=== PATIENT | male | born 1950 | race Caucasian/White ===

== ENCOUNTER 2022-05-29 12:27 | Inpatient (IN) | payer MEDICARE ==
[~2022-05-29] VITALS: Ht 167.6 cm; Wt 78.5 kg
[~2022-05-29 12:27] MED LIST: ALBU2.5V13 IH
[2022-05-29] MEDS ORDERED: DILTIAZEM HCL 5MG/ML 5ML VIAL IV PRN (14:15)
[2022-05-29] MEDS ORDERED: AMIODARONE HCL 150 MG in DEXT 5% WATER 100 ML IV NR (14:30)
[2022-05-29] MEDS ORDERED: AMIODARONE HCL 900 MG in DEXT 5% WATER 482 ML IV SCH ×2 (14:30→14:45)
[2022-05-29 16:34] LABS: EOSINOPHILS % 3.3 % (0.0-5.0); HEMOGLOBIN. 15.9 g/dL (14.0-18.0); LYMPHOCYTES % 22.3 % (20.0-50.0); MEAN CORPUSCULAR HEMOGLOBIN 29.7 pg (28.0-32.0); MEAN CORPUSCULAR VOLUME 87.6 fL (80.0-94.0); MEAN PLATELET VOLUME 7.3 fl (7.4-10.4); MONOCYTES % 9.8 % (2.0-8.0); NEUTROPHILS % 63.6 % (40.0-76.0); PLATELET 287 x1000/uL (130-400); RED BLOOD CELL COUNT 5.36 mill/uL (4.7-6.1); RED CELL DISTRIBUTION WIDTH 14.4 % (11.6-14.6)
[2022-05-29 16:36] LABS: CHLORIDE 106 mEq/L (98-107)
[2022-05-29] MEDS ORDERED: OMEPRAZOLE 20MG CAPSULE EXTENDED RELEASE PO ONE (21:15)
[2022-05-30 03:26] VITALS: BP 145/85
[2022-05-30 06:30] LABS: BASOPHILS % 0.8 % (0.0-2.0); EOSINOPHILS % 5.2 % (0.0-5.0); HEMATOCRIT. 45.4 % (42.0-52.0); HEMOGLOBIN. 15.1 g/dL (14.0-18.0); LYMPHOCYTES % 18.9 % (20.0-50.0); MEAN CORPUSCULAR HEMOGLOBIN 29.3 pg (28.0-32.0); MEAN PLATELET VOLUME 7.7 fl (7.4-10.4); MONOCYTES % 9.7 % (2.0-8.0); NEUTROPHILS % 65.4 % (40.0-76.0); PLATELET 254 x1000/uL (130-400); RED BLOOD CELL COUNT 5.16 mill/uL (4.7-6.1); RED CELL DISTRIBUTION WIDTH 14.3 % (11.6-14.6)
[2022-05-30 06:48] LABS: CHLORIDE 106 mEq/L (98-107)
[2022-05-30 07:02] LABS: CREATINE KINASE 59 IU/L (39-308); CREATINE KINASE MB FRACTION < 1.0 ng/mL (0.5-3.6)
[2022-05-30 07:07] LABS: HDL CHOLESTEROL 33 mg/dL (40-59); LDL CHOLESTEROL 111 mg/dL (5-100); T4 FREE 1.01 ng/dL (0.76-1.46)
[2022-05-30] MEDS ORDERED: ENOXAPARIN 40MG/0.4ML SYR SUBCUT SCH (09:00)
[2022-05-30 12:00] VITALS: BP 115/77
[2022-05-30] MEDS ORDERED: REGADENOSON 0.4 MG/5 ML IV NR (12:30)
[2022-05-30 18:46] LABS: CREATINE KINASE 61 IU/L (39-308); CREATINE KINASE MB FRACTION < 1.0 ng/mL (0.5-3.6)
[2022-05-30 20:00] VITALS: BP 107/69
[2022-05-30] MEDS: AMIODARONE HCL 200 MG TABLET PO SCH (20:56)
[2022-05-30] MEDS: PANTOPRAZOLE 40MG DR TABLET PO SCH (21:00)
[2022-05-30] MEDS ORDERED: ATORVASTATIN CALCIUM 20MG TABLET PO SCH (21:00)
[2022-05-31] VITALS: BP 114/70
[2022-05-31 00:02] LABS: CREATINE KINASE MB FRACTION 1.1 ng/mL (0.5-3.6)
[2022-05-31 04:00] VITALS: BP 113/75
[2022-05-31 06:24] LABS: BASOPHILS % 0.7 % (0.0-2.0); EOSINOPHILS % 3.9 % (0.0-5.0); HEMATOCRIT. 44.3 % (42.0-52.0); HEMOGLOBIN. 15.2 g/dL (14.0-18.0); LYMPHOCYTES % 16.1 % (20.0-50.0); MEAN CORPUSCULAR HEMOGLOBIN 29.9 pg (28.0-32.0); MEAN CORPUSCULAR VOLUME 87.3 fL (80.0-94.0); MEAN PLATELET VOLUME 7.7 fl (7.4-10.4); MONOCYTES % 10.3 % (2.0-8.0); PLATELET 248 x1000/uL (130-400); RED BLOOD CELL COUNT 5.08 mill/uL (4.7-6.1); RED CELL DISTRIBUTION WIDTH 14.6 % (11.6-14.6)
[2022-05-31 06:35] LABS: CHLORIDE 105 mEq/L (98-107)
[2022-05-31] MEDS: PANTOPRAZOLE 40MG DR TABLET PO SCH (07:40)
[2022-05-31 08:00] VITALS: BP 126/75
[2022-05-31] MEDS ORDERED: REGADENOSON 0.4 MG/5 ML IV ONE (10:35)
[2022-05-31 12:09] VITALS: BP 116/98
[2022-05-31] MEDS: AMIODARONE HCL 200 MG TABLET PO SCH (12:20)
[2022-05-31] MEDS ORDERED: AMI2 PO (14:15)
[2022-05-31] MEDS ORDERED: PANT40TA51 PO (14:15)
[2022-05-31] MEDS ORDERED: ATOR20TA PO (14:15)
[2022-05-31 16:00] VITALS: BP 116/84
[2022-05-31 18:43] VITALS: BP 116/84
== END 2022-05-31 19:43 | disposition home or self-care (01) | DRG 310 ==
LOC: ER 12:27 → 7WST 19:51
PROVIDERS: ADMIT Internal Medicine; ATTEND Internal Medicine
PROC: 4A02XM4 Measurement of Cardiac Total Activity, External Approach (ICD-10-PCS; principal; 2022-05-31)
PROC: 3E033HZ Introduction of Radioactive Substance into Peripheral Vein, Percutaneous Approach (ICD-10-PCS; 2022-05-31)
DX: I48.0 Paroxysmal atrial fibrillation (principal); N18.1 Chronic kidney disease, stage 1; J45.909 Unspecified asthma, uncomplicated; Z20.822 Contact with and (suspected) exposure to COVID-19; R00.2 Palpitations; Z91.012 Allergy to eggs; Z79.899 Other long term (current) drug therapy; Z87.891 Personal history of nicotine dependence
CPT/HCPCS: 36415; 71045; 78452; 80048; 80053; 80061; 82550; 82553; 83735; 83880; 84439; 84443; 84484; 85025; 87426; 93005; 93017; 93306; 99291; A9500; J0282; J1650; J2785; J3490; J7060

== ENCOUNTER 2023-08-25 13:20 | Emergency (ER) | payer MEDICARE ==
[~2023-08-25] VITALS: Ht 167.6 cm; Wt 72.0 kg
[~2023-08-25 13:20] MED LIST changes: +AMI2 PO; +ATOR20TA PO; +PANT40TA51 PO
[2023-08-25 13:45] VITALS: O2SAT 96
[2023-08-25] MEDS ORDERED: IBUPROFEN 600MG TABLET PO ONE (16:30)
[2023-08-25] MEDS ORDERED: IBUP-2029 MT ×2 (16:34→16:36)
[2023-08-25] MEDS ORDERED: DIPHENHYDRAMINE 25MG CAPSULE PO ONE (16:45)
[2023-08-25 17:40] VITALS: BP 121/74; PULSE 68; RESP 20; TEMP 98.7
== END 2023-08-25 17:41 | disposition home or self-care (01) ==
LOC: ER 13:20
DX: L72.9 Follicular cyst of the skin and subcutaneous tissue, unspecified (principal); J45.909 Unspecified asthma, uncomplicated; E78.00 Pure hypercholesterolemia, unspecified; I10 Essential (primary) hypertension; Z98.890 Other specified postprocedural states; Z91.018 Allergy to other foods
CPT/HCPCS: 99283; Q0163

== ENCOUNTER 2023-12-07 07:34 | Emergency (ER) | payer MEDICARE ==
[~2023-12-07] VITALS: Ht 170.2 cm; Wt 65.0 kg
[~2023-12-07 07:34] MED LIST changes: +IBUP-2029 MT
[2023-12-07 07:40] VITALS: TEMP 98.5; O2SAT 97
[2023-12-07 08:30] VITALS: BP 127/82; PULSE 87; RESP 20
[2023-12-07] MEDS ORDERED: IBUPROFEN 600MG TABLET PO ONE (08:30)
[2023-12-07] MEDS ORDERED: MELO-105 MT (10:08)
== END 2023-12-07 12:55 | disposition home or self-care (01) ==
LOC: ER 07:34
DX: M54.12 Radiculopathy, cervical region (principal); I10 Essential (primary) hypertension; E78.00 Pure hypercholesterolemia, unspecified; J45.909 Unspecified asthma, uncomplicated; Z91.012 Allergy to eggs; Z98.890 Other specified postprocedural states
CPT/HCPCS: 72040; 99283

== ENCOUNTER 2024-08-02 08:51 | Emergency (ER) | payer MEDICARE ==
[~2024-08-02] VITALS: Ht 160 cm; Wt 64.0 kg
[~2024-08-02 08:51] MED LIST changes: +MELO-105 MT
[2024-08-02 08:54] VITALS: O2SAT 100
[2024-08-02 09:17] LABS: HEMATOCRIT. 44.3 % (42.0-52.0); HEMOGLOBIN. 14.8 g/dL (14.0-18.0); MEAN CORPUSCULAR HEMOGLOBIN 30.7 pg (28.0-32.0); MEAN CORPUSCULAR HGB CONC 33.5 g/dL (31.0-37.0); MEAN CORPUSCULAR VOLUME 91.7 fL (80.0-94.0); MEAN PLATELET VOLUME 7.4 fl (7.4-10.4); PLATELET 203 x1000/uL (130-400); RED BLOOD CELL COUNT 4.83 mill/uL (4.7-6.1); RED CELL DISTRIBUTION WIDTH 14.4 % (11.6-14.6); WHITE BLOOD COUNT 7.4 x1000/uL (4.5-11.0)
[2024-08-02] MEDS: KETOROLAC 30MG/ML VIAL IM ONE (09:20)
[2024-08-02 09:28] LABS: DIFFERENTIAL COMMENT 1
[2024-08-02 09:30] LABS: CHLORIDE 109 mEq/L (98-107); POTASSIUM 3.8 mEq/L (3.5-5.1); SODIUM 141 mEq/L (136-145)
[2024-08-02 09:31] LABS: CALCIUM 9.2 mg/dL (8.7-10.4); CARBON DIOXIDE 25 mEq/L (21-32)
[2024-08-02 09:36] LABS: CREATININE 0.9 mg/dL (0.6-1.3); GLUCOSE 107 mg/dL (70-105); UREA NITROGEN BLOOD 11 mg/dL (9-23)
[2024-08-02 09:38] LABS: ALANINE AMINOTRANSFERASE < 7 IU/L (10-49); ALBUMIN 4.2 g/dL (3.2-4.8); ASPARTATE AMINOTRANSFERASE 13 IU/L (<34); BILIRUBIN TOTAL 0.8 mg/dL (0.1-1.0)
[2024-08-02 09:39] LABS: PROTEIN TOTAL 7.1 g/dL (6.0-8.3)
[2024-08-02 13:26] VITALS: BP 130/78; PULSE 74; RESP 18; TEMP 36.61404; O2SAT 100
[2024-08-02 15:06] LABS: PLATELET ESTIMATE NORMAL
[2024-08-03] MEDS ORDERED: IOHEXOL-300 100 ML BOTTLE ONE (16:05)
== END 2024-08-02 13:26 | disposition home or self-care (01) ==
LOC: ER 08:51
DX: K08.89 Other specified disorders of teeth and supporting structures (principal); J45.909 Unspecified asthma, uncomplicated; E78.00 Pure hypercholesterolemia, unspecified; I10 Essential (primary) hypertension; Z98.890 Other specified postprocedural states; Z79.899 Other long term (current) drug therapy; Z91.012 Allergy to eggs
CPT/HCPCS: 99285; 70487; 80053; 85025; 36415; 96372; J1885

== ENCOUNTER 2024-12-31 09:11 | Emergency (ER) | payer MEDICARE, MEDICAID ==
[~2024-12-31] VITALS: Ht 165.1 cm; Wt 73.0 kg
[2024-12-31 09:23] VITALS: O2SAT 96
[2024-12-31 10:20] LABS: BASOPHILS % 0.7 % (0.0-2.0); EOSINOPHILS % 9.7 % (0.0-5.0); HEMATOCRIT. 46.3 % (42.0-52.0); HEMOGLOBIN. 15.5 g/dL (14.0-18.0); MEAN CORPUSCULAR HEMOGLOBIN 30.8 pg (28.0-32.0); MEAN CORPUSCULAR HGB CONC 33.4 g/dL (31.0-37.0); MEAN CORPUSCULAR VOLUME 92.1 fL (80.0-94.0); MEAN PLATELET VOLUME 7.7 fl (7.4-10.4); MONOCYTES % 8.9 % (2.0-8.0); NEUTROPHILS % 62.7 % (40.0-76.0); PLATELET 212 x1000/uL (130-400); RED BLOOD CELL COUNT 5.03 mill/uL (4.7-6.1); RED CELL DISTRIBUTION WIDTH 13.8 % (11.6-14.6); WHITE BLOOD COUNT 6.6 x1000/uL (4.5-11.0)
[2024-12-31 10:32] LABS: CHLORIDE 104 mEq/L (98-107); POTASSIUM 4.2 mEq/L (3.5-5.1); SODIUM 137 mEq/L (136-145)
[2024-12-31 10:33] LABS: CARBON DIOXIDE 24 mEq/L (21-32)
[2024-12-31 10:34] LABS: CALCIUM 9.3 mg/dL (8.7-10.4)
[2024-12-31 10:38] LABS: GLUCOSE 96 mg/dL (70-105)
[2024-12-31 10:39] LABS: UREA NITROGEN BLOOD 12 mg/dL (9-23)
[2024-12-31 10:40] LABS: ALANINE AMINOTRANSFERASE < 7 IU/L (10-49); ALBUMIN 4.2 g/dL (3.2-4.8); ASPARTATE AMINOTRANSFERASE 14 IU/L (<34)
[2024-12-31 10:41] LABS: BILIRUBIN TOTAL 1.5 mg/dL (0.1-1.0); PROTEIN TOTAL 7.2 g/dL (6.0-8.3)
[2024-12-31] MEDS ORDERED: ACET-2708 MT (12:06)
[2024-12-31 12:43] VITALS: BP 133/85; PULSE 68; RESP 16; TEMP 36.9; O2SAT 96
[2024-12-31 13:24] LABS: CLARITY URINE CLEAR (CLEAR); COLOR URINE YELLOW (YELLOW); GLUCOSE URINE NEGATIVE (NEGATIVE); KETONES URINE NEGATIVE (NEGATIVE); LEUKOCYTE ESTERASE URINE NEGATIVE (NEGATIVE); NITRITE URINE NEGATIVE (NEGATIVE); OCCULT BLOOD URINE NEGATIVE (NEGATIVE); PH URINE 7.5 (4.5-8.0); PROTEIN URINE NEGATIVE (NEGATIVE); SPECIFIC GRAVITY URINE 1.015 (1.005-1.030)
[2024-12-31 14:26] LABS: ERYTHROCYTE SEDIMENTATION RATE 3 mm/hr (0-20)
== END 2024-12-31 12:48 | disposition home or self-care (01) ==
LOC: ER 09:11
DX: M54.40 Lumbago with sciatica, unspecified side (principal); J44.89 Other specified chronic obstructive pulmonary disease; E78.00 Pure hypercholesterolemia, unspecified; I10 Essential (primary) hypertension; Z79.1 Long term (current) use of non-steroidal anti-inflammatories (NSAID); Z98.890 Other specified postprocedural states; Z79.899 Other long term (current) drug therapy; Z91.012 Allergy to eggs
CPT/HCPCS: 36415; 80053; 81003; 85025; 85651; 99283

== ENCOUNTER 2025-01-15 13:51 | Inpatient (IN) | payer MEDICARE, MEDICAID ==
[~2025-01-15] VITALS: Ht 165.1 cm; Wt 69.9 kg
[~2025-01-15 13:51] MED LIST changes: +ACET-2708 MT
[2025-01-15] MEDS ORDERED: DILTIAZEM HCL 120MG CAPSULE ER 24HR PO ONE (14:15)
[2025-01-15] MEDS: SODIUM CHLORIDE 0.9% 1,000 ML IV ONE (14:20)
[2025-01-15 14:34] LABS: CARBON DIOXIDE 20 mEq/L (21-32); CHLORIDE 108 mEq/L (98-107); POTASSIUM 5.1 mEq/L (3.5-5.1); SODIUM 143 mEq/L (136-145)
[2025-01-15] MEDS: DILTIAZEM HCL 60MG TABLET PO NR (14:34)
[2025-01-15 14:36] LABS: CALCIUM 9.6 mg/dL (8.7-10.4)
[2025-01-15 14:40] LABS: CREATININE 1.3 mg/dL (0.6-1.3); GLUCOSE 141 mg/dL (70-105); UREA NITROGEN BLOOD 13 mg/dL (9-23)
[2025-01-15 14:42] LABS: TROPONIN I HIGH SENSITIVITY 4 ng/L (3.0-53)
[2025-01-15] MEDS: MAGNESIUM 1 G PREMIX 100 ML IV ONE (15:15)
[2025-01-15 15:45] LABS: BASOPHILS % 0.6 % (0.0-2.0); EOSINOPHILS % 8.1 % (0.0-5.0); HEMATOCRIT. 43.6 % (42.0-52.0); HEMOGLOBIN. 14.3 g/dL (14.0-18.0); LYMPHOCYTES % 19.6 % (20.0-50.0); MEAN CORPUSCULAR HEMOGLOBIN 29.6 pg (28.0-32.0); MEAN CORPUSCULAR HGB CONC 32.8 g/dL (31.0-37.0); MEAN CORPUSCULAR VOLUME 90.3 fL (80.0-94.0); MEAN PLATELET VOLUME 7.7 fl (7.4-10.4); MONOCYTES % 9.4 % (2.0-8.0); NEUTROPHILS % 62.3 % (40.0-76.0); PLATELET 178 x1000/uL (130-400); RED BLOOD CELL COUNT 4.83 mill/uL (4.7-6.1); RED CELL DISTRIBUTION WIDTH 14.1 % (11.6-14.6); WHITE BLOOD COUNT 7.3 x1000/uL (4.5-11.0)
[2025-01-15 15:54] LABS: INR 1.1; PROTHROMBIN TIME 11.5 sec (9.6-11.0)
[2025-01-15] MEDS ORDERED: HYDROCODONE/ACETAMINOPHEN 5/325MG TABLET PO PRN (16:45)
[2025-01-15] MEDS ORDERED: ONDANSETRON HCL 4MG/2ML INJ IV PRN (16:45)
[2025-01-15] MEDS ORDERED: ACETAMINOPHEN 325MG TABLET PO PRN (16:45)
[2025-01-15] MEDS ORDERED: IPRATROPIUM/ALBUTEROL 0.5-3(2.5)MG/3ML NEB HHN PRN (16:45)
[2025-01-15] MEDS: ENOXAPARIN 80MG/0.8ML SYR SUBCUT SCH (18:18)
[2025-01-15 20:00] VITALS: BP 120/74; PULSE 80; RESP 16; TEMP 36.7; O2SAT 96
[2025-01-15] MEDS: ATORVASTATIN CALCIUM 40MG TABLET PO SCH (21:41)
[2025-01-15] MEDS: DILTIAZEM HCL 60MG TABLET PO SCH (21:43)
[2025-01-15 22:00] VITALS: BP 120/74; PULSE 80; RESP 16; TEMP 36.8
[2025-01-15 22:37] LABS: CREATINE KINASE MB FRACTION 1.1 ng/mL (0.5-3.6)
[2025-01-15 22:38] LABS: CREATINE KINASE 114 IU/L (46-171)
[2025-01-15 22:41] LABS: TROPONIN I HIGH SENSITIVITY < 4 ng/L (3.0-53)
[2025-01-16] VITALS: BP 109/60; PULSE 60; RESP 16; TEMP 36.1; O2SAT 96
[2025-01-16 04:00] VITALS: BP 97/64; PULSE 67; RESP 18; TEMP 36.1; O2SAT 98
[2025-01-16 07:06] LABS: BASOPHILS % 0.7 % (0.0-2.0); EOSINOPHILS % 11.7 % (0.0-5.0); HEMATOCRIT. 43.2 % (42.0-52.0); HEMOGLOBIN. 14.7 g/dL (14.0-18.0); LYMPHOCYTES % 24.3 % (20.0-50.0); MEAN CORPUSCULAR HEMOGLOBIN 31.1 pg (28.0-32.0); MEAN CORPUSCULAR VOLUME 91.6 fL (80.0-94.0); MEAN PLATELET VOLUME 8.4 fl (7.4-10.4); MONOCYTES % 11.5 % (2.0-8.0); NEUTROPHILS % 51.8 % (40.0-76.0); PLATELET 175 x1000/uL (130-400); RED BLOOD CELL COUNT 4.72 mill/uL (4.7-6.1); WHITE BLOOD COUNT 6.9 x1000/uL (4.5-11.0)
[2025-01-16 07:11] LABS: CHLORIDE 108 mEq/L (98-107); POTASSIUM 3.9 mEq/L (3.5-5.1); SODIUM 143 mEq/L (136-145)
[2025-01-16 07:12] LABS: CALCIUM 8.9 mg/dL (8.7-10.4); CARBON DIOXIDE 26 mEq/L (21-32)
[2025-01-16 07:13] LABS: CREATINE KINASE MB FRACTION 0.7 ng/mL (0.5-3.6)
[2025-01-16 07:17] LABS: CREATININE 0.9 mg/dL (0.6-1.3); GLUCOSE 110 mg/dL (70-105); UREA NITROGEN BLOOD 12 mg/dL (9-23)
[2025-01-16 07:18] LABS: CREATINE KINASE 87 IU/L (46-171)
[2025-01-16 07:27] LABS: TROPONIN I HIGH SENSITIVITY < 4 ng/L (3.0-53)
[2025-01-16 08:00] VITALS: BP 121/80; PULSE 68; RESP 18; TEMP 36.8; O2SAT 99
[2025-01-16] MEDS: ASPIRIN 81MG EC TABLET PO SCH (09:17)
[2025-01-16] MEDS ORDERED: NALOXONE HCL 0.4MG/ML VIAL IV PRN (10:45)
[2025-01-16] MEDS: AMIODARONE 200MG TABLET PO SCH (11:45)
[2025-01-16] MEDS: APIXABAN 5 MG TABLET PO SCH (11:45)
[2025-01-16 12:00] VITALS: BP 115/76; PULSE 68; RESP 16; TEMP 36.7; O2SAT 97
[2025-01-16] MEDS: FENOFIBRATE NANOCRYSTALLIZED 145MG TABLET PO SCH (13:00)
[2025-01-16 16:00] VITALS: BP 107/69; PULSE 75; RESP 16; TEMP 36.8; O2SAT 96
[2025-01-16 20:00] VITALS: BP 115/70; PULSE 71; RESP 18; TEMP 36.2; O2SAT 96
[2025-01-17] VITALS: BP 115/86; PULSE 86; RESP 17; TEMP 36.5; O2SAT 96
[2025-01-17 04:00] VITALS: BP 103/62; PULSE 65; RESP 16; TEMP 36.2; O2SAT 99
[2025-01-17 06:43] LABS: BASOPHILS % 0.4 % (0.0-2.0); HEMOGLOBIN. 15.2 g/dL (14.0-18.0); LYMPHOCYTES % 17.8 % (20.0-50.0); MEAN CORPUSCULAR HEMOGLOBIN 31.6 pg (28.0-32.0); MEAN CORPUSCULAR HGB CONC 34.7 g/dL (31.0-37.0); MEAN CORPUSCULAR VOLUME 91.1 fL (80.0-94.0); MEAN PLATELET VOLUME 8.1 fl (7.4-10.4); MONOCYTES % 7.7 % (2.0-8.0); NEUTROPHILS % 65.1 % (40.0-76.0); PLATELET 201 x1000/uL (130-400); RED BLOOD CELL COUNT 4.83 mill/uL (4.7-6.1); RED CELL DISTRIBUTION WIDTH 14.1 % (11.6-14.6); WHITE BLOOD COUNT 8.5 x1000/uL (4.5-11.0)
[2025-01-17 07:08] LABS: CHLORIDE 103 mEq/L (98-107); POTASSIUM 4.1 mEq/L (3.5-5.1); SODIUM 139 mEq/L (136-145)
[2025-01-17 07:09] LABS: CARBON DIOXIDE 25 mEq/L (21-32)
[2025-01-17 07:10] LABS: CALCIUM 9.3 mg/dL (8.7-10.4)
[2025-01-17 07:14] LABS: GLUCOSE 110 mg/dL (70-105)
[2025-01-17 07:15] LABS: UREA NITROGEN BLOOD 13 mg/dL (9-23)
[2025-01-17 07:16] LABS: ALANINE AMINOTRANSFERASE < 7 IU/L (10-49); ALBUMIN 3.9 g/dL (3.2-4.8); ASPARTATE AMINOTRANSFERASE 12 IU/L (<34)
[2025-01-17 07:17] LABS: BILIRUBIN TOTAL 1.1 mg/dL (0.1-1.0)
[2025-01-17 08:00] VITALS: BP 117/75; PULSE 69; RESP 18; TEMP 36.8; O2SAT 97
[2025-01-17] MEDS ORDERED: DILTIAZEM HCL 120MG CAPSULE ER 24HR PO SCH (09:00)
[2025-01-17 12:00] VITALS: BP 113/65; PULSE 63; RESP 16; TEMP 36; O2SAT 96
[2025-01-17] MEDS ORDERED: APIX5TAB PO (13:44)
[2025-01-17] MEDS ORDERED: ASPI-1406 PO (13:44)
[2025-01-17] MEDS ORDERED: FENO145 PO (13:44)
[2025-01-17] MEDS ORDERED: LIP40 PO (13:44)
[2025-01-17] MEDS ORDERED: AMI2 PO (13:44)
[2025-01-17 15:01] VITALS: BP 113/65; PULSE 63; TEMP 96.8; O2SAT 96
[2025-01-17 15:38] VITALS: BP 116/87; PULSE 79; RESP 14; TEMP 36.1; O2SAT 97
== END 2025-01-17 15:48 | disposition home or self-care (01) | DRG 310 ==
LOC: ER 13:51 → 5WST 15:03 → EDBEDREQ 15:17 → EDBEDREQTM 15:17
PROVIDERS: ADMIT Internal Medicine; ATTEND Internal Medicine
DX: I47.10 Supraventricular tachycardia, unspecified (principal); I10 Essential (primary) hypertension; E78.00 Pure hypercholesterolemia, unspecified; J44.89 Other specified chronic obstructive pulmonary disease; I48.91 Unspecified atrial fibrillation; Z79.899 Other long term (current) drug therapy; Z87.891 Personal history of nicotine dependence; Z91.148 Patient's other noncompliance with medication regimen for other reason
CPT/HCPCS: 36415; 71045; 80048; 80053; 82550; 82553; 83036; 83735; 83880; 84443; 84484; 85025; 86850; 86900; 93005; 99291; A4606; J1650; J3475; J7030